=== PATIENT | female | born 1950 | race Caucasian/White ===

== ENCOUNTER 2017-07-31 10:32 | Emergency (ER) | payer BC, MEDICARE, OTHER ==
[2017-07-31 10:40] VITALS: BP 172/90
== END 2017-07-31 11:19 | disposition left against medical advice (07) ==
LOC: ED 10:32
DX: Z53.21 Procedure and treatment not carried out due to patient leaving prior to being seen by health care provider (principal)
CPT/HCPCS: 81001; 81003; 87086

== ENCOUNTER 2017-08-01 08:00 | Outpatient (CLI) | payer MEDICARE ==
[2017-08-01 18:40] LABS: BILIRUBIN,URINE NEGATIVE (NEGATIVE)
[2017-08-01 19:15] LABS: UR CULTURE IF IND INDICATED; WBC,URINE 0-3 /HPF (0-5)
== END 2017-08-01 08:01 | disposition home or self-care (01) ==
LOC: LAB.F 08:00
PROVIDERS: ATTEND Physician Assistant Medical
DX: N39.0 Urinary tract infection, site not specified (principal)
CPT/HCPCS: 81001; 87086